=== PATIENT | male | born 2000 | race Hispanic/Latino ===

== ENCOUNTER 2025-02-10 13:11 | Emergency (ER) | payer SELFPAY ==
[~2025-02-10] VITALS: Ht 172.7 cm; Wt 147.4 kg
[2025-02-10] MEDS ORDERED: IBUP-1492 PO (14:06)
--- NOTE | 2025-02-10 14:08 | ERN ---
ED Note History of Present Illness Stated Complaint: LEFT ANKLE IS STIFF Chief Complaint: Ankle Problem Time Seen by MD: 13:12 Time Seen by Midlevel: 13:12 Dictation: 24-year-old male who presents to the ED for evaluation of left ankle pain. Reports he was drinking this weekend and just remembers waking up in the next morning with ankle pain. Denies any known trauma, fall, twisting injury as he says he does not remember. Normal sensation to toes Allergies: Coded Allergies: No Known Drug Allergies (Unverified Allergy, Unknown, 02/10/25) Home Meds Active Scripts Ibuprofen (Ibuprofen) 600 Mg Tablet, 1 TAB PO TID for pain for 10 Days, #30 TAB 0 Refills with food Prov:EMILIE DIMAS 02/10/25 Past Medical History Past Medical History: No Pertinent History Surgical History: None RN Note Reviewed/Agreed w/PFSH: Yes Review of System Dictation Constitutional: Negative for fever,chills, and weight loss Eyes: Negative for injury, pain,redness, and discharge ENT: Negative for injury,pain or swelling Cardiovascular: Negative for chest pain, palpitations, and edema Respiratory: Negative for shortness of breath, cough, and wheezing, Abdomen/GI: Negative for abdominal pain, nausea, vomiting, diarrhea, and constipation Back: Negative for injury and pain : Negative for injury, bleeding and discharge MS/Extremity: Negative for deformity Skin: Negative for rash, and discoloration Neuro: Negative for headache, weakness, numbness, tingling, and seizure Psych: Negative for suicide ideation, homicidal ideation, and hallucinations Review of Systems: was completed Initial Vital Sign VS Vital Signs Date Time Temp Pulse Resp B/P (MAP) Pulse Ox O2 Delivery O2 Flow Rate FiO2 02/10/25 13:12 98.4 106 18 145/82 98 Room Air 02/10/25 13:26 0 21 Physical Exam Dictation General: awake, alert, NAD Head/Face: Normocephalic, atraumatic Eyes: PERRL, EOMI, vision at baseline ENT: oral cavity clear, TMs clear, no signs of infection Neck: Trachea midline, supple, no nuchal rigidity Cardiovascular: RRR, normal S1/S2, No MRGs, no JVD Respiratory: CTAB, no respiratory distress, No rales or wheezes Abdomen: Soft, non-tender, non-distended, normal bowel sounds, no guarding or rebound. Skin: Warm, dry, normal turgor, no rash MS/Extremity: Pulses equal, no cyanosis, neurovascular intact, limited range of motion of left ankle secondary to pain. No obvious deformities. No overlying erythema, redness, swelling. Mild tenderness to the lateral aspect of the left malleolus. Normal capillary refill less than 2 seconds and dorsalis pedis pulse intact 2+. Neuro: COAx4, GCS 15, strength 5/5, CN 2-12 intact, normal cerebellar exam, normal gait, Psych: Normal behavior, mood, and affect normal Results (Laboratory/Radiology) X-RAY Comment: No acute finding of x-ray of the ankle. ED Course ED Course Orders Procedure Category Date Status Time Ankle Comp 3vws Lt RAD 02/10/25 Resulted 13:17 Ketorolac PHA 02/10/25 Complete Tromethamine 15mg/Ml 13:17 Posterior Ankle Splint [email or web address].ER 02/10/25 In Process 14:08 Current Medications Medications (Trade) Dose Ordered Sig/Curt Route PRN Reason Start Time Stop Time Status Last Admin Dose Admin Ketorolac Tromethamine (toRADol) 15 mg ONCE STAT IM 02/10/25 13:17 02/10/25 13:20 DC 02/10/25 13:35 Vital Signs Date Time Temp Pulse Resp B/P (MAP) Pulse Ox O2 Delivery O2 Flow Rate FiO2 02/10/25 14:37 98.1 84 16 136/76 98 Room Air* 0 21 02/10/25 13:26 98.1 90 16 140/80 98 Room Air* 0 21 02/10/25 13:12 98.4 106 18 145/82 98 Room Air Medical Decision Making MDM MDM: Differential diagnosis: Ankle sprain, fracture, contusion Rationale: Tests considered and ordered secondary to shared decision making include: Previous outside records reviewed: Old ER visits. Medications-Per medication reconciliation Need for hospitalization: Patient does not meet criteria for hospitalization. Need for emergency major/minor surgery: No Patient's prior external medical records from other ER visits were reviewed by me as indicated. Prior testing and results from previous visits were reviewed. Prior tests were taken into account with medical decision making and resource utilization, independent historian/historians were used to obtain complete medical history. I independently interpreted the test that were performed, results were reviewed by me and considered findings on radiology if ordered. Medical management and examination interpretation discussions were had by me w ith other qualified healthcare professionals as indicated for the patient's care. Patient neurovascularly intact distally. No obvious deformity. Overlying erythema, bruising, redness. Normal capillary refill less than 2 seconds and 2+ dorsalis pedis pulse intact. Limited range of motion secondary to pain in tenderness to the lateral malleolus. X-ray shows no acute finding of fracture. Patient will be given Mike wrap and discharged home in stable condition recommended follow up with PCP. Sent home with symptomatic care as well. DX & DISP Disposition: Discharge Departure Impression: Primary Impression: Left ankle sprain Condition: Stable Scripts Ibuprofen (Ibuprofen) 600 Mg Tablet 1 TAB PO TID for pain for 10 Days, #30 TAB 0 Refills with food Prov: EMILIE DIMAS 02/10/25 Additional Instructions: DISCHARGE HOME. REST. FOLLOW UP WITH PRIMARY CARE DRRoyce IN 24 HOURS. RETURN TO THE ER FOR ANY ACUTE CHANGE. PATIENT WAS ALSO ADVISED TO FOLLOW-UP WITH PRIMARY CARE PHYSICIAN IN 1 TO 2 DAYS FOR CONTINUED MONITORING. ALL INSTRUCTIONS WERE GIVEN TO LAYMANS TERM AND PATIENT AGREEABLE TO DISCHARGE AND PROPER FOLLOW-UP. I have reviewed the case, and I agree with, Diagnosis and Plan EMILIE DIMAS Feb 10, 2025 14:08
--- NOTE | 2025-02-10 14:19 | HMCIMG ---
EXAM: CR left ankle, 3 View. CLINICAL HISTORY: ankle pain COMPARISON: None provided. FINDINGS: BONES: No acute fracture or aggressive appearing osseous lesion. JOINTS: The joint spaces appear within normal limits. No dislocation. No radiographic evidence of a joint effusion. SOFT TISSUES: Mild soft tissue swelling of the lateral malleolus. IMPRESSION: 1. No acute osseous injury. Mild lateral malleolar soft tissue swelling. /[place]
[2025-02-10 14:37] VITALS: BP 136/76; PULSE 84; RESP 16; TEMP 98.1; O2SAT 98
== END 2025-02-10 14:53 | disposition home or self-care (01) ==
LOC: EDH 13:11
DX: S93.402A Sprain of unspecified ligament of left ankle, initial encounter (principal); Z79.1 Long term (current) use of non-steroidal anti-inflammatories (NSAID); W18.39XA Other fall on same level, initial encounter; Y93.89 Activity, other specified; Y92.89 Other specified places as the place of occurrence of the external cause; Y99.8 Other external cause status
CPT/HCPCS: 99283; 29515; 73610; 96372; J1885